=== PATIENT | male | born 1970 | race Caucasian/White ===

== ENCOUNTER 2016-09-27 22:26 | Emergency (ER) | payer SELFPAY ==
--- NOTE | 2016-09-28 06:52 | ER ---
ADMIT: 09/27/2016 RM/LOC: ER [facility] MR#: [id number] [facility] [id number] [place], [place] [id number] MINESH TEMPLE [address] [place] [address] Emergency Room Report SEX: M AGE: 46 : 1970 DATE: 09/27/2016 The patient is a 46-year-old male complaining of 4-day history of nausea, vomiting, and diarrhea without melena or hematemesis. No exposures that he is aware of. Exam remarkable for nontoxic, afebrile male. No evidence of jaundice or icterus. Responded well to IV fluid, Zofran, Toradol, Dilaudid, and Protonix, tolerated oral challenge. Home with Zofran 8 mg ODT p.r.n. #20, plus 3 from Pyxis. Clear liquid diet. Avoid milk, juice, and pop. Follow up Dr. Morrison as needed. Nasim Allen MD/ eleazar JOB #: [id number] CC: Nasim Allen MD, Attending Physician
== END 2016-09-28 01:05 | disposition home or self-care (01) ==
LOC: ER 22:26
DX: R11.2 Nausea with vomiting, unspecified (principal); R19.7 Diarrhea, unspecified